=== PATIENT | male | born 1995 | race Caucasian/White ===

== ENCOUNTER 2025-08-09 07:49 | Emergency (ER) | payer OTHER | END 2025-08-09 10:05 | disposition home or self-care (01) | LOC: JD.ED 07:49 | DX: M23.91 Unspecified internal derangement of right knee (principal); X50.9XXA Other and unspecified overexertion or strenuous movements or postures, initial encounter; Y93.01 Activity, walking, marching and hiking; Y99.0 Civilian activity done for income or pay | CPT/HCPCS: 73562-26-RT; 73562-RT; 99283 ==